=== PATIENT | female | born 1995 | race Caucasian/White ===

== ENCOUNTER 2024-12-17 15:52 | Outpatient (CLI) | payer OTHER, SELFPAY | END 2024-12-17 15:53 | disposition home or self-care (01) | LOC: NFLDREF 15:54 | PROVIDERS: Visit Provider Obstetrics & Gynecology | DX: O20.0 Threatened abortion (principal) | CPT/HCPCS: 84702; 86850; 86900; 86901 ==

== ENCOUNTER 2024-12-22 14:42 | Outpatient (CLI) | payer OTHER, SELFPAY ==
--- NOTE | 2024-12-22 14:45 | CRLHL7_ITS ---
For Patients: As a result of the Century Cures Act, medical imaging exams and procedure reports are released immediately into your electronic medical record. You may view this report before your referring provider. If you have questions, please contact your health care provider. OBSTETRICAL ULTRASOUND TRANSVAGINAL, 12/22/2024 CLINICAL INDICATION: Early OB spotting, cramping. Previous miscarriage. LMP: 11/03/2024 SHAHZAD by LMP: 08/10/2025 Gestational age: 7 weeks 0 days Previous ultrasound: No TECHNIQUE: Real-time read-scale imaging of the fetus was performed transvaginal. FINDINGS: CRL: 0.9 cm, 6 weeks 6 days; SHAHZAD 08/11/2025 heart rate: 138 BPM Gestational sac: 2.2 cm, appears within normal limits Yolk sac: 2.7 mm, appears within normal limits Right ovary: 4.3 x 2.4 x 1.9 cm, CL Left ovary: 3.1 x 2.3 x 1.8 cm IMPRESSION: 1. Single living intrauterine with sonographic gestational age of 6 weeks 6 days and sonographic due date of 08/11/2025. 2. Subchorionic hemorrhage is present measuring 1.7 x 0.4 x 1.5 cm. JOSE LIND M.D. Diagnostic Radiologist [email or web address] Transcribed: 4:[address]/Dictated by: Jose Lind MD @ 12/22/2024 3:38:00 PM (Electronically Signed)
== END 2024-12-22 14:43 | disposition home or self-care (01) ==
LOC: US 14:43
PROVIDERS: Visit Provider Obstetrics & Gynecology
DX: O20.9 Hemorrhage in early pregnancy, unspecified (principal); Z3A.01 Less than 8 weeks gestation of pregnancy
CPT/HCPCS: 76817

== ENCOUNTER 2025-01-01 12:44 | Outpatient (CLI) | payer OTHER, SELFPAY ==
--- NOTE | 2025-01-01 13:00 | CRLHL7_ITS ---
For Patients: As a result of the Cures Act, medical imaging exams and procedure reports are released immediately into your electronic medical record. You may view this report before your referring provider. If you have questions, please contact your health care provider. OB ULTRASOUND INDICATION: Previous miscarriage. Viability. TECHNIQUE: Real time grayscale imaging of the fetus was performed. Transvaginal. LMP: 11/03/2024. SHAHZAD by LMP: 08/10/2025. GA: 8 w, 3 d. Previous US: Yes, 12/22/2024. SHAHZAD by US: 08/11/2025. GA: 6 w, 6 d. CRL: 2.0 cm. 8 w 4 d. SHAHZAD: 08/09/2025. FHR: 171 BPM. Gestational sac: 3.2 cm. Appears within normal limits. Yolk sac: 3.6 mm. Appears within normal limits. Right ovary: 4.0 x 2.1 x 2.4 cm. CL. Left ovary: 3.0 x 1.5 x 2.6 cm. IMPRESSION: 1. Sonographic gestational age 8 weeks 4 days and sonographic due date 08/09/2025. 2. Anterior subchorionic hemorrhage measures 2.2 x 0.7 x 1.1 cm, previously measuring 1.7 x 0.4 x 1.5 cm. Jose Ruff M.D. Diagnostic Radiologist [email or web address] MINNIE/angeles reynoso/Dictated by: Jose Ruff MD @ 01/02/2025 8:09:00 AM (Electronically Signed)
== END 2025-01-01 12:45 | disposition home or self-care (01) ==
LOC: US 12:45
PROVIDERS: Visit Provider Physician Assistant
DX: Z34.91 Encounter for supervision of normal pregnancy, unspecified, first trimester (principal); O20.9 Hemorrhage in early pregnancy, unspecified; Z3A.08 8 weeks gestation of pregnancy
CPT/HCPCS: 76817; 83021; 84443; 86592; 86703; 86704; 86706; 86762; 86787; 86803; 87086; 87340; 87491; 87591

== ENCOUNTER 2025-03-11 08:32 | Outpatient (CLI) | payer OTHER, SELFPAY | END 2025-03-11 08:33 | disposition home or self-care (01) | LOC: US 08:33 | PROVIDERS: Visit Provider Advanced Practice Midwife | DX: Z34.92 Encounter for supervision of normal pregnancy, unspecified, second trimester (principal); Z3A.18 18 weeks gestation of pregnancy | CPT/HCPCS: 76811 ==

== ENCOUNTER 2025-04-01 09:53 | Outpatient (CLI) | payer OTHER, SELFPAY | END 2025-04-01 09:54 | disposition home or self-care (01) | LOC: US 09:53 | PROVIDERS: Visit Provider Advanced Practice Midwife | DX: Z36.2 Encounter for other antenatal screening follow-up (principal); Z3A.21 21 weeks gestation of pregnancy | CPT/HCPCS: 76816 ==

== ENCOUNTER 2025-04-30 14:55 | Outpatient (CLI) | payer OTHER, SELFPAY | END 2025-04-30 14:56 | disposition home or self-care (01) | LOC: FRMREF 14:56 | PROVIDERS: Visit Provider Midwife | DX: R39.15 Urgency of urination (principal) | CPT/HCPCS: 87086 ==

== ENCOUNTER 2025-05-01 13:16 | Outpatient (CLI) | payer OTHER, SELFPAY ==
[2025-05-01 16:46] LABS: Bacterial Vaginosis* Negative (Negative); Candida glab/krus NOT DETECTED (No Detected)
== END 2025-05-01 13:17 | disposition home or self-care (01) ==
LOC: NFLDREF 13:20
PROVIDERS: Visit Provider Advanced Practice Midwife
DX: N89.8 Other specified noninflammatory disorders of vagina (principal)
CPT/HCPCS: 81513; 87481; 87661

== ENCOUNTER 2025-05-14 10:30 | Outpatient (CLI) | payer OTHER, SELFPAY | END 2025-05-14 10:31 | disposition home or self-care (01) | LOC: NFLDREF 05-17 05:14 | PROVIDERS: Visit Provider Advanced Practice Midwife | DX: Z34.92 Encounter for supervision of normal pregnancy, unspecified, second trimester (principal); Z3A.27 27 weeks gestation of pregnancy | CPT/HCPCS: 86592 ==

== ENCOUNTER 2025-06-10 14:45 | Outpatient (CLI) | payer OTHER, SELFPAY | END 2025-06-10 14:46 | disposition home or self-care (01) | LOC: US 14:45 | PROVIDERS: Visit Provider Advanced Practice Midwife | DX: Z36.2 Encounter for other antenatal screening follow-up (principal); O35.DXX0 Maternal care for other (suspected) fetal abnormality and damage, fetal gastrointestinal anomalies, not applicable or unspecified; Z3A.31 31 weeks gestation of pregnancy | CPT/HCPCS: 76816 ==

== ENCOUNTER 2025-06-15 14:35 | Outpatient (CLI) | payer OTHER, SELFPAY | END 2025-06-15 14:36 | disposition home or self-care (01) | LOC: NFLDREF 14:37 | PROVIDERS: Visit Provider Midwife | DX: F41.9 Anxiety disorder, unspecified (principal) | CPT/HCPCS: 84443 ==